=== PATIENT | female | born 1995 | race Two or more races ===

== ENCOUNTER 2018-09-03 18:30 | Outpatient (CLI) | payer OTHER | END 2018-09-04 21:29 | disposition home or self-care (01) | LOC: LDR 18:30 → OBS/DEL 18:30 | DX: O98.813 Other maternal infectious and parasitic diseases complicating pregnancy, third trimester (principal); Z34.03 Encounter for supervision of normal first pregnancy, third trimester; B95.62 Methicillin resistant Staphylococcus aureus infection as the cause of diseases classified elsewhere ==

== ENCOUNTER 2018-09-11 06:01 | Inpatient (IN) | payer OTHER ==
[~2018-09-11] VITALS: Ht 152.4 cm; Wt 82.1 kg
[2018-09-11] MEDS ORDERED: PRENATABS RX T1 EACH PO (08:11)
== END 2018-09-13 11:00 | disposition home or self-care (01) | DRG 807 ==
LOC: LDR 06:01 → OB/GYN 06:01 → LDR 06:03 → OB/GYN 20:03
PROVIDERS: ADMIT Obstetrics & Gynecology
PROC: 10E0XZZ Delivery of Products of Conception, External Approach (ICD-10-PCS; principal; 2018-09-11)
PROC: 0W8NXZZ Division of Female Perineum, External Approach (ICD-10-PCS; 2018-09-11)
PROC: 4A1HXCZ Monitoring of Products of Conception, Cardiac Rate, External Approach (ICD-10-PCS; 2018-09-11)
PROC: 3E033VJ Introduction of Other Hormone into Peripheral Vein, Percutaneous Approach (ICD-10-PCS; 2018-09-11)
DX: O80 Encounter for full-term uncomplicated delivery (principal); Z37.0 Single live birth; Z3A.40 40 weeks gestation of pregnancy; O99.345 Other mental disorders complicating the puerperium